=== PATIENT | female | born 1990 | race Caucasian/White ===

== ENCOUNTER 2021-07-21 11:50 | Emergency (ER) | payer BC ==
[2021-07-21 12:14] VITALS: PULSE 101; RESP 19; TEMP 98
[2021-07-21] MEDS ORDERED: SODIUM CHLORIDE 0.9% 50 ML IVPB ONE (15:30)
[2021-07-21] MEDS ORDERED: BAMLANIVIMAB (EUA) 700 MG, ETESEVIMAB (EUA) 1,400 MG in SODIUM CHLORIDE 0.9% 50 ML IVPB ONE (15:30)
--- NOTE | 2021-07-21 16:17 | ED ---
URI HPI - General Chief Complaint: Upper Respiratory Infection Stated Complaint: covid+, wants infusion/18 wks preg Time Seen by Provider: 07/21/21 14:13 Source: patient, RN notes reviewed Mode of arrival: ambulatory Limitations: no limitations - History of Present Illness Initial Comments: Patient is a 31-year-old female, currently 18 weeks , presenting to the emergency department requesting covid Antibody treatment. Patient states she started having symptoms yesterday of cough, some mild chest discomfort, she was evaluated at [facility] yesterday with extensive blood work and CT scans, all were normal. They did a rapid Covid which was positive. She consulted with her FREE LANCE MODEL, Dr. Peraza who recommended coming into the ER for antiviral infusion. Patient states her symptoms are fairly mild at this point, she has some mild cough and congestion, some mild fatigue but no other complaints. She denies any abdominal pain, no vaginal bleeding, no fevers or chills. She denies any nausea or vomiting, no diarrhea. She's been having a normal appetite. She has no further complaints at this time. Upon arrival to the ER, her vitals are stable. - Related Data Allergies Allergy/AdvReac Type Severity Reaction Status Date / Time No Known Allergies Allergy Verified 07/21/21 12:15 Review of Systems ROS Statement: Those systems with pertinent positive or pertinent negative responses have been documented in the HPI. ROS Other: All systems not noted in ROS Statement are negative. Past Medical History Past Medical History: No Reported History History of Any Multi-Drug Resistant Organisms: None Reported Past Surgical History: No Surgical Hx Reported Smoking Status: Never smoker Past Alcohol Use History: None Reported Past Drug Use History: None Reported General Exam - General Exam Comments Initial Comments: GENERAL: Patient is well-developed and well-nourished. Patient is nontoxic and in no acute distress. HEAD: Atraumatic, normocephalic. EYES: Pupils equal round and reactive to light, extraocular movements intact, sclera anicteric, conjunctiva are normal. Eyelids were unremarkable. ENT: Moist mucous membranes. NECK: Normal range of motion, supple without lymphadenopathy or JVD. LUNGS: Unlabored respirations. Breath sounds clear to auscultation bilaterally and equal. No wheezes rales or rhonchi. HEART: Regular rate and rhythm without murmurs, rubs or gallops. ABDOMEN: Soft, nontender, normoactive bowel sounds. No guarding, no rebound. No masses appreciated. MUSCULOSKELETAL: Normal extremities with adequate strength and normal range of motion, no pitting or edema. No clubbing or cyanosis. NEUROLOGICAL: Patient is alert and oriented x 3. SKIN: Warm, Dry, normal turgor, no rashes or lesions noted. Limitations: no limitations Course Vital Signs 07/21/21 12:11 Temperature 98.0 F Pulse Rate 101 H Respiratory 19 Rate O2 Sat by Pulse 97 Oximetry Medical Decision Making - Medical Decision Making Patient is a 31-year-old female, currently 18 weeks , presenting for colitic monoclonal antibody infusion. She tested positive yesterday, her symptoms also began yesterday. Her vitals are stable, her exam is unremarkable. She is having no alarming symptoms, no abdominal pain or vaginal bleeding. , FREE LANCE MODEL is Dr. Peraza who recommended the monoclonal antibodies. Patient received these without any adverse side effects. She is stable for discharge, she can follow up with her FREE LANCE MODEL. She is agreeable to this plan of care. Disposition Clinical Impression: COVID-19 Disposition: HOME SELF-CARE Condition: Stable Instructions (If sedation given, give patient instructions): Coronavirus Disease 2019 (COVID-19) Additional Instructions: Please return to the Emergency Department if symptoms worsen or any other concerns. Take Tylenol for any fevers or body aches. Continue to increase your fluids. Follow up with your FREE LANCE MODEL. Is patient prescribed a controlled substance at d/c from ED?: No Referrals: Jarek Cooley DO [Primary Care Provider] - 1-2 days Ingrid Peraza MD [STAFF PHYSICIAN] - 1-2 days Time of Disposition: 16:16
== END 2021-07-21 17:15 | disposition home or self-care (01) ==
LOC: EC 11:50
DX: O98.512 Other viral diseases complicating pregnancy, second trimester (principal); U07.1 COVID-19; Z3A.18 18 weeks gestation of pregnancy
CPT/HCPCS: 99284; 96365; J3490

== ENCOUNTER 2021-08-17 15:03 | Outpatient (CLI) | payer BC ==
[2021-08-17 15:56] VITALS: BP 118/75; PULSE 93; RESP 18; TEMP 97.2
--- NOTE | 2021-09-19 08:55 | P.MSEPDOC ---
Presenting Problems - Arrival Data Date of Arrival on Unit: 08/17/21 Time of Arrival on Unit: 15:13 Mode of Transport: Ambulatory - Complaint OB-Reason for Admission/Chief Complaint: PIH Comment: BP at work 150/80, 160/90 Medical History - Information : 1 Para: 0 Term: 0 : 0 Abortions: Spontaneous or Elective: 0 Number of Living Children: 0 - Gestational Age Gestational Age by JOCELYN (wks/days): 21 Weeks and 5 Days - History Comment: Denies complications Review of Systems - Review of Systems Constitutional: No problems Breast: No problems ENT: No problems Cardiovascular: No problems Respiratory: No problems Gastrointestinal: No problems Genitourinary: No problems Musculoskeletal: No problems Neurological: No problems Skin: No problems Vital Signs - Temperature Temperature: 97.2 F Temperature Source: Temporal Artery Scan - Pulse Right Sitting Brachial Pulse Rate: 93 Pulse Assessment Method: Automatic Cuff - Respirations Respiratory Rate: 18 Oxygen Delivery Method: Room Air - Blood Pressure Right Arm Sitting Blood Pressure: 118/75 Blood Pressure Mean: 89 Blood Pressure Source: Automatic Cuff Medical Screen Scoring - Assessment - Baby A Baseline FHR: 140 Heart Rate - NICHD Category: Category I (Normal) Physician Notification - Physician Notified Physician Notified Date: 08/17/21 Physician Notified Time: 15:45 Physician: Keysha Merchant Order Received: Yes - Notification Comment Comment: OK to dc home.Follow up with Dr Peraza in the office as scheduled. Maternal Triage Index - Maternal Triage Index Presenting for scheduled procedure w/no complaint: No - Stat/Priority 1 Stat Priority 1: No - Urgent/Priority 2 Urgent Priority 2: No - Prompt/Priority 3 Prompt Priority 3: No - Non-Urgent/Priority 4 Non-Urgent Priority 4: Yes Criteria Met for Priority 4: Bp elevated at work. WNL in triage today.Denies any other complaints. Disposition - Disposition OB Disposition: Physician follow up in office, Discharge to home Discharge Date: 08/17/21 Discharge Time: 15:56 I agree with the RN Medical Screening Exam: Yes Case reviewed; plan agreed upon as documented in EMR&OBIX.: Yes Diagnosis: RELATED CONDITIONS, UNSPECIFIED, SECOND TRIMESTER
== END 2021-08-17 15:57 | disposition home or self-care (01) ==
LOC: FBPOP 15:03
PROVIDERS: ATTEND Obstetrics & Gynecology
DX: O13.2 Gestational [pregnancy-induced] hypertension without significant proteinuria, second trimester (principal); Z3A.21 21 weeks gestation of pregnancy
CPT/HCPCS: 99215

== ENCOUNTER 2021-11-17 17:56 | Outpatient (CLI) | payer BC ==
[2021-11-17] MEDS ORDERED: LACTATED RINGERS 1,000 ML IV SCH (18:30)
[2021-11-17 18:45] LABS: Appearance,Urine Clear (Clear); Bilirubin,Urine Negative (Negative); Blood,Urine Negative (Negative); Color,Urine Light Yellow; Glucose,Urine (UA) Negative (Negative); Ketones,Urine Negative (Negative); Leukocyte Esterase,Urine Negative (Negative); Nitrite,Urine Negative (Negative); PH, Urine 6.5 (5.0-8.0); Protein,Urine Negative (Negative); Specific Gravity,Urine 1.014 (1.001-1.035); Urobilinogen,Urine <2.0 mg/dL (<2.0)
[2021-11-17 19:21] VITALS: BP 127/66; PULSE 99; RESP 18; TEMP 96.5
--- NOTE | 2021-12-04 10:36 | P.MSEPDOC ---
Presenting Problems - Arrival Data Date of Arrival on Unit: 11/17/21 Time of Arrival on Unit: 17:56 Mode of Transport: Ambulatory - Complaint OB-Reason for Admission/Chief Complaint: Possible Onset of Labor Comment: cramping that started about an hour prior to admission Medical History - Information : 1 Para: 0 Term: 0 : 0 Abortions: Spontaneous or Elective: 0 Number of Living Children: 0 - Gestational Age Gestational Age by JOCELYN (wks/days): 34 Weeks and 6 Days Review of Systems - Review of Systems Constitutional: No problems Breast: No problems ENT: No problems Cardiovascular: No problems Respiratory: No problems Gastrointestinal: No problems Genitourinary: No problems Musculoskeletal: No problems Neurological: No problems Skin: No problems Vital Signs - Temperature Temperature: 96.5 F Temperature Source: Temporal Artery Scan - Pulse Right Pulse Oximetery Pulse Rate: 99 Pulse Assessment Method: Pulse Oximetry - Respirations Respiratory Rate: 18 Oxygen Delivery Method: Room Air O2 Sat by Pulse Oximetry: 97 - Blood Pressure Right Arm Blood Pressure: 127/66 Blood Pressure Mean: 86 Blood Pressure Source: Automatic Cuff Medical Screen Scoring - Cervical Exam Dilation (cm): 1 Effacement (%): 0 Station: -3 Membranes: Intact - Uterine Contractions Frequency From (mins): 3 Frequency To (mins): 6 Duration From (seconds): 40 Duration To (seconds): 50 Intensity: Mild Resting: Soft to palpation - Assessment - Baby A Baseline FHR: 135 Heart Rate - NICHD Category: Category I (Normal) NST: Reactive Physician Notification - Physician Notified Physician Notified Date: 11/17/21 Physician Notified Time: 18:23 Physician: Ingrid Peraza Order Received: Yes (order for IV hydration and UA) Maternal Triage Index - Maternal Triage Index Presenting for scheduled procedure w/no complaint: No - Stat/Priority 1 Stat Priority 1: No - Urgent/Priority 2 Urgent Priority 2: No - Prompt/Priority 3 Prompt Priority 3: Yes Criteria Met for Priority 3: complaints of contractions/early labor signs 34 6/7 weeks - Non-Urgent/Priority 4 Non-Urgent Priority 4: No - Scheduled/Requesting Priority 5 Scheduled/Requesting Priority 5: No Disposition - Disposition OB Disposition: Physician follow up in office, Discharge to home Discharge Date: 11/17/21 Discharge Time: 19:15 I agree with the RN Medical Screening Exam: Yes Case reviewed; plan agreed upon as documented in EMR&OBIX.: Yes Diagnosis: FALSE LABOR BEFORE 37 COMPLETED WEEKS OF GEST, THIRD TRI
== END 2021-11-17 19:15 | disposition home or self-care (01) ==
LOC: FBPOP 17:56
PROVIDERS: ATTEND Obstetrics & Gynecology
DX: O47.03 False labor before 37 completed weeks of gestation, third trimester (principal); Z3A.34 34 weeks gestation of pregnancy
CPT/HCPCS: 59025; 81003; 96360; 99213; 99214

== ENCOUNTER 2021-11-26 20:50 | Outpatient (CLI) | payer BC ==
[2021-11-26 23:02] VITALS: BP 130/69; PULSE 97; RESP 18; TEMP 96.6
--- NOTE | 2022-01-06 17:58 | P.MSEPDOC ---
Presenting Problems - Arrival Data Date of Arrival on Unit: 11/26/21 Time of Arrival on Unit: 20:50 Mode of Transport: Ambulatory - Complaint OB-Reason for Admission/Chief Complaint: Possible Onset of Labor Medical History - Information : 1 Para: 0 Term: 0 : 0 Abortions: Spontaneous or Elective: 0 Number of Living Children: 0 - Gestational Age Gestational Age by JOCELYN (wks/days): 36 Weeks and 1 Days Review of Systems - Review of Systems Constitutional: No problems Breast: No problems ENT: No problems Cardiovascular: No problems Respiratory: No problems Gastrointestinal: No problems Genitourinary: No problems Musculoskeletal: No problems Neurological: No problems Skin: No problems Vital Signs - Temperature Temperature: 96.6 F Temperature Source: Temporal Artery Scan - Pulse Right Pulse Rate: 97 Pulse Assessment Method: Pulse Oximetry - Respirations Respiratory Rate: 18 Oxygen Delivery Method: Room Air O2 Sat by Pulse Oximetry: 98 - Blood Pressure Right Arm Blood Pressure: 130/69 Blood Pressure Mean: 89 Blood Pressure Source: Automatic Cuff Medical Screen Scoring - Cervical Exam Dilation (cm): 1 Station: -3 Membranes: Intact - Uterine Contractions Frequency From (mins): 5 Frequency To (mins): 8 Duration From (seconds): 50 Duration To (seconds): 60 Intensity: Mild Resting: Soft to palpation - Assessment - Baby A Baseline FHR: 120 Heart Rate - NICHD Category: Category I (Normal) NST: Reactive Physician Notification - Physician Notified Physician Notified Date: 11/26/21 Physician Notified Time: 22:20 Physician: Nora Lobo New Order Received: Yes (D/C home) - Notification Comment Comment: Dr. Lobo notified of pt's arrival to triage with c/o UC's q5-8min apart. POC discussed at this time. Pt okay to D/C home. Maternal Triage Index - Maternal Triage Index Presenting for scheduled procedure w/no complaint: No - Stat/Priority 1 Stat Priority 1: No - Urgent/Priority 2 Urgent Priority 2: No - Prompt/Priority 3 Prompt Priority 3: No - Non-Urgent/Priority 4 Non-Urgent Priority 4: Yes Criteria Met for Priority 4: JOCELYN 12/23/21 here at 36.1 weeks of gestations with c/o UC's q5-8min since 1730, rated 4/10 on a 0/10 pain scale. Disposition - Disposition OB Disposition: Discharge to home Discharge Date: 11/26/21 Discharge Time: 22:39 I agree with the RN Medical Screening Exam: Yes Case reviewed; plan agreed upon as documented in EMR&OBIX.: Yes Diagnosis: FALSE LABOR BEFORE 37 COMPLETED WEEKS OF GEST, THIRD TRI
== END 2021-11-26 22:39 | disposition home or self-care (01) ==
LOC: FBPOP 20:50
PROVIDERS: ATTEND Obstetrics & Gynecology Obstetrics
DX: O47.03 False labor before 37 completed weeks of gestation, third trimester (principal); Z3A.36 36 weeks gestation of pregnancy
CPT/HCPCS: 59025; 99213

== ENCOUNTER 2021-12-10 22:51 | Outpatient (CLI) | payer BC ==
[2021-12-11 00:07] VITALS: BP 134/74; PULSE 90; RESP 16; TEMP 96.4
--- NOTE | 2022-01-08 08:54 | P.MSEPDOC ---
Presenting Problems - Arrival Data Date of Arrival on Unit: 12/11/21 Time of Arrival on Unit: 22:51 Mode of Transport: Ambulatory - Complaint OB-Reason for Admission/Chief Complaint: Possible Onset of Labor Comment: contractions since 1899 Medical History - Information : 1 Para: 0 Term: 0 : 0 Abortions: Spontaneous or Elective: 0 Number of Living Children: 0 - Gestational Age Gestational Age by JOCELYN (wks/days): 38 Weeks and 2 Days Review of Systems - Review of Systems Constitutional: No problems Breast: No problems ENT: No problems Cardiovascular: No problems Respiratory: No problems Gastrointestinal: Diarrhea Genitourinary: No problems Musculoskeletal: No problems Neurological: No problems Skin: No problems Vital Signs - Temperature Temperature: 96.4 F Temperature Source: Temporal Artery Scan - Pulse Right Sitting Pulse Rate: 90 Pulse Assessment Method: Automatic Cuff - Respirations Respiratory Rate: 16 Oxygen Delivery Method: Room Air O2 Sat by Pulse Oximetry: 97 - Blood Pressure Right Arm Sitting Blood Pressure: 134/74 Blood Pressure Mean: 94 Blood Pressure Source: Automatic Cuff Medical Screen Scoring - Cervical Exam Dilation (cm): 1.5 Effacement (%): 60 Station: -3 Membranes: Intact - Assessment - Baby A Baseline FHR: 125 Heart Rate - NICHD Category: Category I (Normal) Physician Notification - Physician Notified Physician Notified Date: 12/11/21 Physician Notified Time: 23:25 Physician: Ingrid Peraza Order Received: Yes - Notification Comment Comment: Pt may be discharged home with reactive NST. Pt is to keep sced apt for Tuesday at 845. Pt is to increase fluids and eat a bland diet. Maternal Triage Index - Maternal Triage Index Presenting for scheduled procedure w/no complaint: No - Stat/Priority 1 Stat Priority 1: No - Urgent/Priority 2 Urgent Priority 2: No - Prompt/Priority 3 Prompt Priority 3: No - Non-Urgent/Priority 4 Non-Urgent Priority 4: Yes Criteria Met for Priority 4: irregular contractions, diarrhea and nausea for past few days Disposition - Disposition OB Disposition: Physician follow up in office, Discharge to home, Written follow up instructions reviewed Discharge Date: 12/11/21 Discharge Time: 00:00 I agree with the RN Medical Screening Exam: Yes Case reviewed; plan agreed upon as documented in EMR&OBIX.: Yes Comments: Patient was neither seen nor examined by me Diagnosis: FALSE LABOR AT OR AFTER 37 COMPLETED WEEKS OF GESTATION
== END 2021-12-11 | disposition home or self-care (01) ==
LOC: FBPOP 22:51
PROVIDERS: ATTEND Obstetrics & Gynecology
DX: O47.1 False labor at or after 37 completed weeks of gestation (principal); Z3A.38 38 weeks gestation of pregnancy
CPT/HCPCS: 59025; 99213

== ENCOUNTER → 2023-10-31 | Outpatient (CLI) | payer BC ==
[2023-10-31 15:45] LABS: C Reactive Protein 0.4 mg/dL (0.00-0.80)
== END | disposition home or self-care (01) ==
LOC: LABWHC1 10:05
PROVIDERS: ATTEND Psychiatry & Neurology Neurology
DX: M79.10 Myalgia, unspecified site (principal); M35.7 Hypermobility syndrome; M25.50 Pain in unspecified joint; R53.1 Weakness
CPT/HCPCS: 36415; 82306; 82550; 82607; 84207; 85652; 86140; 86235

== ENCOUNTER 2024-02-22 08:57 | Emergency (ER) | payer BC ==
[2024-02-22 09:03] VITALS: RESP 18
[2024-02-22 09:37] LABS: Basophils # (A) 0.1 k/uL (0-0.2); Basophils % (A) 1 %; Eosinophils # (A) 0.4 k/uL (0-0.7); Eosinophils % (A) 4 %; HCT 43.9 % (34.0-46.0); HGB 13.7 gm/dL (11.4-16.0); Lymphocytes # (A) 1.4 k/uL (1.0-4.8); Lymphocytes % (A) 14 %; MCHC 31.3 g/dL (31.0-37.0); MCV 92.8 fL (80.0-100.0); Mean Platelet Volume 7.9; Monocytes # (A) 0.5 k/uL (0-1.0); Monocytes % (A) 5 %; Neutrophils # (A) 7.5 k/uL (1.3-7.7); Neutrophils % (A) 75 %; Platelet Count 336 k/uL (150-450); RBC 4.73 m/uL (3.80-5.40); RDW 12.2 % (11.5-15.5); WBC 9.9 k/uL (3.8-10.6)
[2024-02-22 09:54] LABS: ALT 22 U/L (4-34); AST 26 U/L (14-36); African American GFR (CKD) >90 (>60 ml/min/1.73 sqM); Albumin 4.4 g/dL (3.5-5.0); Alkaline Phosphatase 73 U/L (38-126); Anion Gap 6 mmol/L; Blood Urea Nitrogen 14 mg/dL (7-17); Carbon Dioxide 26 mmol/L (22-30); Chloride 108 mmol/L (98-107); Glucose 89 mg/dL (74-99); Non-African American GFR(CKD) >90 (>60 ml/min/1.73 sqM); Potassium 4.6 mmol/L (3.5-5.1); Sodium 140 mmol/L (137-145); Total Bilirubin 0.4 mg/dL (0.2-1.3); Total Protein 7.4 g/dL (6.3-8.2)
[2024-02-22 10:10] LABS: HCG,Quantitative Serum 84.3 mIU/mL
[2024-02-22 10:15] LABS: Appearance,Urine Cloudy (Clear); Bacteria,Urine Rare /hpf; Bilirubin,Urine Negative (Negative); Blood,Urine Large (Negative); Color,Urine Yellow; Glucose,Urine (UA) Negative (Negative); Ketones,Urine Negative (Negative); Leukocyte Esterase,Urine Moderate (Negative); Nitrite,Urine Negative (Negative); PH, Urine 7.5 (5.0-8.0); Protein,Urine Trace (Negative); RBC,Urine >182 /hpf (0-5); Specific Gravity,Urine 1.009 (1.001-1.035); Squamous Epithelial Cell,Urine 3 /hpf (0-4); Urobilinogen,Urine <2.0 mg/dL (<2.0); WBC,Urine 27 /hpf (0-5)
--- NOTE | 2024-02-22 10:16 | ED ---
Female Urogenital HPI - General Chief complaint: Vaginal Bleeding Stated complaint: poss miscarriage Time Seen by Provider: 02/22/24 10:14 Source: patient, RN notes reviewed Mode of arrival: ambulatory Limitations: no limitations - History of Present Illness Initial comments: This is a 33-year-old female approximately 6 weeks gestation presenting to the ER with a chief complaint of vaginal bleeding. She states bleeding started yesterday morning and has been persistent. Patient also was endorsing lower abdominal cramping/pressure. She was seen by OB yesterday to have lab work obtained her serum hCG was 201 at that time. Patient is following up with Dr. Mcclain. She states vaginal bleeding has been persistent and has increased in intensity throughout the night which brought her to the ER. She denies any blood thinner use, fevers, chills, nausea, vomiting, chest pain, shortness of breath, constipation/diarrhea, urinary complaints or peripheral edema. - Related Data Home Medications Medication Instructions Recorded Confirmed Aspirin 81 mg PO DAILY 08/17/21 12/16/21 Calcium Carbonate [Calcium] 600 mg PO DAILY 08/17/21 12/16/21 Famotidine [Pepcid] 20 mg PO DAILY 08/17/21 12/16/21 Pnv No.95/Ferrous Fum/Folic AC 1 tablet PO DAILY 08/17/21 12/16/21 [ Multivitamin Tablet] Sertraline [Zoloft] 50 mg PO DAILY 08/17/21 12/16/21 Allergies Allergy/AdvReac Type Severity Reaction Status Date / Time No Known Allergies Allergy Verified 02/22/24 09:03 Review of Systems ROS Statement: Those systems with pertinent positive or pertinent negative responses have been documented in the HPI. ROS Other: All systems not noted in ROS Statement are negative. Past Medical History Past Medical History: Asthma History of Any Multi-Drug Resistant Organisms: None Reported Past Surgical History: Adenoidectomy, Tonsillectomy Past Anesthesia/Blood Transfusion Reactions: Unable to Obtain Past Psychological History: No Psychological Hx Reported Smoking Status: Never smoker Past Alcohol Use History: None Reported Past Drug Use History: None Reported - Past Family History Mother Family Medical History: Hypertension General Exam Limitations: no limitations General appearance: alert, in no apparent distress Respiratory exam: Present: normal lung sounds bilaterally. Absent: respiratory distress, wheezes, rales, rhonchi, stridor Cardiovascular Exam: Present: regular rate, normal rhythm, normal heart sounds. Absent: systolic murmur, diastolic murmur, rubs, gallop, clicks GI/Abdominal exam: Present: soft, normal bowel sounds. Absent: distended, tenderness, guarding, rebound, rigid Neurological exam: Present: alert, oriented X3, CN II-XII intact Skin exam: Present: warm, dry, intact, normal color. Absent: rash Course Vital Signs 02/22/24 02/22/24 09:01 10:54 Temperature 98.5 F 98.1 F Pulse Rate 59 L 86 Respiratory 18 18 Rate Blood Pressure 121/78 122/80 O2 Sat by Pulse 98 99 Oximetry Medical Decision Making - Medical Decision Making Was pt. sent in by a medical professional or institution (TOYA Salas, PSYCH SOCIAL WORKER, urgent care, hospital, or shelter...) When possible be specific @ -No Did you speak to anyone other than the patient for history (EMS, parent, family, police, friend...)? What history was obtained from this source @ -No Did you review nursing and triage notes (agree or disagree)? Why? @ -I reviewed and agree with nursing and triage notes Were old charts reviewed (outside hosp., previous admission, EMS record, old EKG, old radiological studies, urgent care reports/EKG's, shelter records)? Report findings @ -Yes I reviewed blood type from previous delivery on 12-16-2021. Patient blood type O+. Differential Diagnosis (chest pain, altered mental status, abdominal pain women, abdominal pain men, vaginal bleeding, weakness, fever, dyspnea, syncope, headache, dizziness, GI bleed, back pain, seizure, CVA, palpatations, mental health, musculoskeletal)? @ -Differential Vaginal Bleeding: Spontaneous , threatened , molar , ectopic , bloody show, incompetent cervix, abruptioplacenta, placenta previa, uterine rupture, dysfunctional uterine bleeding, hemorrhage, uterine fibroids, this is not meant to be an all-inclusive list. EKG interpreted by me (3pts min.). @ -None X-rays interpreted by me (1pt min.). @ -None done CT interpreted by me (1pt min.). @ -None done U/S interpreted by me (1pt. min.). @ -Obstetrical ultrasound negative for IUP. What testing was considered but not performed or refused? (CT, X-rays, U/S, labs)? Why? @ -None What meds were considered but not given or refused? Why? @ -None Did you discuss the management of the patient with other professionals (professionals i.e. , PA, PSYCH SOCIAL WORKER, lab, RT, psych nurse, social media marketing manager, engineering faculty, teacher, juvenile correctional officer, manager of case management)? Give summary @ -No Was smoking cessation discussed for >3mins.? @ -No Was critical care preformed (if so, how long)? @ -No Were there social determinants of health that impacted care today? How? (Homelessness, low income, unemployed, alcoholism, drug addiction, transportation, low edu. Level, literacy, decrease access to med. care, detention, rehab)? @ -No Was there de-escalation of care discussed even if they declined (Discuss DNR or withdrawal of care, Hospice)? DNR status @ -No What co-morbidities impacted this encounter? (DM, HTN, Smoking, COPD, CAD, Cancer, CVA, ARF, Chemo, Hep., AIDS, mental health diagnosis, sleep apnea, morbid obesity)? @ - Was patient admitted / discharged? Hospital course, mention meds given and route, prescriptions, significant lab abnormalities, going to OR and other per tinent info. @ -Discharge. 33-year-old female presented to the ER with a chief complaint of vaginal bleeding. Patient is G2, P1 approximately 6 weeks gestation. History and physical exam completed. Vitals significant for a temperature of 98.5F, rate 59, respiratory rate 18, blood pressure 121/78, oxygen saturation 98% on room air. Exam significant for mild suprapubic tenderness to palpation. Laboratory studies and ultrasound will be obtained. Patient in agreements with this plan. Laboratory studies significant for a stable hemoglobin at 13.7, serum hCG 84.3. Urine analysis hemorrhagic with large blood and moderate leukocyte esterases this is likely contaminated from vaginal bleeding. There were 27 white blood cells concerning of infection. Urine culture sent. Patient will not be started on antibiotics at this time as she is asymptomatic. Ultrasound negative for IUP. Given patient's laboratory studies and ultrasound findings spontaneous considered. Upon reevaluation, patient resting comfortably in exam room in no signs of acute distress. Results discussed with patient, all questions answered. Advised close follow-up with PHP WEB DEVELOPER, Dr. Mcclain, and serial HCGs, serum quantitative hCG prescription given. I instructed her to have it drawn in 48 hours. Patient's blood type O+, no indication for Rhogam. Strict return parameters discussed. Patient discharged in stable condition. Patient and , at bedside, verbally expressed understanding and agreement with care plan. Case discussed with Ed attending, Dr. Lim. Undiagnosed new problem with uncertain prognosis? @ -No Drug Therapy requiring intensive monitoring for toxicity (Heparin, Nitro, Insu terence, Cardizem)? @ -No Were any procedures done? @ -No Diagnosis/symptom? @ -Spontaneous Acute, or Chronic, or Acute on Chronic? @ -Acute Uncomplicated (without systemic symptoms) or Complicated (systemic symptoms)? @ -Complicated Side effects of treatment? @ -No Exacerbation, Progression, or Severe Exacerbation? @ -No Poses a threat to life or bodily function? How? (Chest pain, USA, SC, pneumonia, PE, COPD, DKA, ARF, appy, cholecystitis, CVA, Diverticulitis, Homicidal, Suicidal, threat to staff... and all critical care pts) @ -Low likelihood - Lab Data Result diagrams: 02/22/24 09:31 02/22/24 09:31 Lab Results 02/22/24 02/22/24 02/22/24 Range/Units 09:31 09:31 09:41 WBC 9.9 (3.8-10.6) k/uL RBC 4.73 (3.80-5.40) m/uL Hgb 13.7 (11.4-16.0) gm/dL Hct 43.9 (34.0-46.0) % MCV 92.8 (80.0-100.0) fL MCH 29.0 (25.0-35.0) pg MCHC 31.3 (31.0-37.0) g/dL RDW 12.2 (11.5-15.5) % Plt Count 336 (150-450) k/uL MPV 7.9 Neutrophils % 75 % Lymphocytes % 14 % Monocytes % 5 % Eosinophils % 4 % Basophils % 1 % Neutrophils # 7.5 (1.3-7.7) k/uL Lymphocytes # 1.4 (1.0-4.8) k/uL Monocytes # 0.5 (0-1.0) k/uL Eosinophils # 0.4 (0-0.7) k/uL Basophils # 0.1 (0-0.2) k/uL Sodium 140 (137-145) mmol/L Potassium 4.6 (3.5-5.1) mmol/L Chloride 108 H (98-107) mmol/L Carbon Dioxide 26 (22-30) mmol/L Anion Gap 6 mmol/L BUN 14 (7-17) mg/dL Creatinine 0.60 (0.52-1.04) mg/dL Est GFR (CKD-EPI)AfAm >90 (>60 ml/min/1.73 sqM) Est GFR (CKD-EPI)NonAf >90 (>60 ml/min/1.73 sqM) Glucose 89 (74-99) mg/dL Calcium 9.0 (8.4-10.2) mg/dL Total Bilirubin 0.4 (0.2-1.3) mg/dL AST 26 (14-36) U/L ALT 22 (4-34) U/L Alkaline Phosphatase 73 (38-126) U/L Total Protein 7.4 (6.3-8.2) g/dL Albumin 4.4 (3.5-5.0) g/dL HCG, Quant 84.3 mIU/mL Urine Color Yellow Urine Appearance Cloudy H (Clear) Urine pH 7.5 (5.0-8.0) Ur Specific Blair 1.009 (1.001-1.035) Urine Protein Trace H (Negative) Urine Glucose (UA) Negative (Negative) Urine Ketones Negative (Negative) Urine Blood Large H (Negative) Urine Nitrite Negative (Negative) Urine Bilirubin Negative (Negative) Urine Urobilinogen <2.0 (<2.0) mg/dL Ur Leukocyte Esterase Moderate H (Negative) Urine RBC >182 H (0-5) /hpf Urine WBC 27 H (0-5) /hpf Ur Squamous Epith Cells 3 (0-4) /hpf Urine Bacteria Rare H (None) /hpf - Radiology Data Radiology results: report reviewed, image reviewed Disposition Clinical Impression: Spontaneous Disposition: HOME SELF-CARE Condition: Stable Instructions (If sedation given, give patient instructions): Miscarriage (ED) Additional Instructions: Please follow-up with Dr. Mcclain in the next 1-2 days. Have blood HCG drawn in 48 hours. Return to the ER for any new or worsening symptoms. Is patient prescribed a controlled substance at d/c from ED?: No Referrals: Carly Montano MD [Primary Care Provider] - 1-2 days Lily Mcclain MD [STAFF PHYSICIAN] - 1-2 days Time of Disposition: 10:44
--- NOTE | 2024-02-22 10:31 | US ---
EXAMINATION TYPE: Transabdominal DATE OF EXAM: 02/22/2024 10:07 AM COMPARISON: NONE CLINICAL INDICATION: Female, 33 years old with history of vag bleeding 6 wks gestation; Cramping and spotting started yesterday EXAM PERFORMED: Transvaginal (TV) and Transabdominal (TA) EXAM MEASUREMENTS: GESTATIONAL AGE / DATING Physician Established: (6 weeks/3 days) EDC: 10/14/2024 Dates by LMP: (6 weeks/3 days) EDC: 10/14/2024 Dates by First Scan: No previous this is first scan ( weeks/ days) EDC: Dates by Current Scan for: No IUP seen at this time ( weeks/ days) EDC: MATERNAL ANATOMY Uterus: 9.5 x 4.6 x 5.3 Right Ovary: 1.9 x 1.7 x 2.3 Left Ovary: 2.4 x 1.7 x 2.6 Post CDS / Adnexa: Trace fluid within the CDS Presence of free fluid: Yes Presence of corpus luteal cyst: No Presence of subchorionic bleed: No GESTATION / SURVEY CRL: Not seen ( weeks/ days) MSD: Not seen ( weeks/ days) Yolk Sac (normal less than 6mm): Not seen Heart Rate: Not seen bpm Rhythm: NA IUP: No IUP seen at this time Nuchal Translucency 10-14wks (normal less than 3mm): NA Age Appropriate Anatomy Cord Insertion: NA Limbs: NA Calvarium: NA Date of LMP: 01/08/2024 Beta HcG (if available): Not available at this time IMPRESSION: 1. No intrauterine identified. If the patient has a positive beta hCG. Then differential di agnosis would include normal too early to detect, back space and missed . Ectopic p regnancy not entirely excluded correlate with serial beta hCG and pelvic ultrasound as clinically war ranted.
[2024-02-22 10:55] VITALS: BP 122/80; PULSE 86; TEMP 98.1
== END 2024-02-22 10:54 | disposition home or self-care (01) ==
LOC: EC 08:57
DX: O03.9 Complete or unspecified spontaneous abortion without complication (principal)
CPT/HCPCS: 36415; 76801; 76817; 80053; 81001; 84702; 85025; 87086; 99284

== ENCOUNTER 2024-05-19 13:03 | Emergency (ER) | payer BC ==
[2024-05-19 13:09] VITALS: PULSE 61; TEMP 98
--- NOTE | 2024-05-19 13:39 | ED ---
Female Urogenital HPI - General Chief complaint: Vaginal Bleeding Stated complaint: 7wks preg, vaginal bleeding Time Seen by Provider: 05/19/24 13:37 Source: patient, RN notes reviewed Mode of arrival: ambulatory Limitations: no limitations - History of Present Illness Initial comments: 33-year-old G3, P1 female at approximately 7 weeks gestation presenting to the ER with chief complaint of vaginal bleeding x 1 hour. States she had a routine OB visit earlier this week in which the ultrasound revealed intrauterine with a heartbeat. Patient denies abdominal pain or cramping. Denies urinary symptoms. She was seen in the ER 3 months ago for spontaneous miscarriage. - Related Data Home Medications Medication Instructions Recorded Confirmed Aspirin 81 mg PO DAILY 08/17/21 12/16/21 Calcium Carbonate [Calcium] 600 mg PO DAILY 08/17/21 12/16/21 Famotidine [Pepcid] 20 mg PO DAILY 08/17/21 12/16/21 Pnv No.95/Ferrous Fum/Folic AC 1 tablet PO DAILY 08/17/21 12/16/21 [ Multivitamin Tablet] Sertraline [Zoloft] 50 mg PO DAILY 08/17/21 12/16/21 Previous Rx's Medication Instructions Recorded Cephalexin [Keflex] 500 mg PO Q8HR 7 Days #21 cap 05/19/24 Allergies Allergy/AdvReac Type Severity Reaction Status Date / Time No Known Allergies Allergy Verified 05/19/24 13:08 Review of Systems ROS Statement: Those systems with pertinent positive or pertinent negative responses have been documented in the HPI. ROS Other: All systems not noted in ROS Statement are negative. Past Medical History Past Medical History: Asthma History of Any Multi-Drug Resistant Organisms: None Reported Past Surgical History: Adenoidectomy, Tonsillectomy Past Anesthesia/Blood Transfusion Reactions: Unable to Obtain Past Psychological History: No Psychological Hx Reported Smoking Status: Never smoker Past Alcohol Use History: None Reported Past Drug Use History: None Reported - Past Family History Mother Family Medical History: Hypertension General Exam Limitations: no limitations General appearance: alert, in no apparent distress Head exam: Present: atraumatic, normocephalic, normal inspection Eye exam: Present: normal appearance, PERRL, EOMI. Absent: scleral icterus, conjunctival injection, periorbital swelling Respiratory exam: Present: normal lung sounds bilaterally. Absent: respiratory distress, wheezes, rales, rhonchi, stridor Cardiovascular Exam: Present: regular rate, normal rhythm, normal heart sounds. Absent: systolic murmur, diastolic murmur, rubs, gallop, clicks GI/Abdominal exam: Present: soft, normal bowel sounds. Absent: distended, tenderness, guarding, rebound, rigid Back exam: Absent: CVA tenderness (R), CVA tenderness (L) Neurological exam: Present: alert, oriented X3 Psychiatric exam: Present: normal affect, normal mood Skin exam: Present: warm, dry, intact, normal color. Absent: rash Course Vital Signs 05/19/24 13:07 Temperature 98 F Pulse Rate 61 Respiratory 20 Rate Blood Pressure 119/81 O2 Sat by Pulse 99 Oximetry Medical Decision Making - Medical Decision Making Was pt. sent in by a medical professional or institution (, PA, [employer], urgent care, hospital, or fpc...) When possible be specific @ -[No] Did you speak to anyone other than the patient for history (EMS, parent, family, police, friend...)? What history was obtained from this source @ -[No] Did you review nursing and triage notes (agree or disagree)? Why? @ -[I reviewed and agree with nursing and triage notes] Were old charts reviewed (outside hosp., previous admission, EMS record, old EKG, old radiological studies, urgent care reports/EKG's, fpc records)? Report findings @ -Previous ER visit including lab work and blood type reviewed Differential Diagnosis (chest pain, altered mental status, abdominal pain women, abdominal pain men, vaginal bleeding, weakness, fever, dyspnea, syncope, headache, dizziness, GI bleed, back pain, seizure, CVA, palpatations, mental health, musculoskeletal)? @ -Differential Vaginal Bleeding: Spontaneous , threatened , molar , ectopic , bloody show, incompetent cervix, abruptioplacenta, placenta previa, uterine rupture, dysfunctional uterine bleeding, hemorrhage, uterine fibroids, this is not meant to be an all-inclusive list. EKG interpreted by me (3pts min.). @ -None X-rays interpreted by me (1pt min.). @ -[None done] CT interpreted by me (1pt min.). @ -[None done] U/S interpreted by me (1pt. min.). @ -Pelvic ultrasound revealed single viable intrauterine , 2.1 x 1.1 x 0.2 cm subchorionic bleed, no adnexal abnormalities, no free fluid in cul-de-sac What testing was considered but not performed or refused? (CT, X-rays, U/S, labs)? Why? @ -[None] What meds were considered but not given or refused? Why? @ -RhoGAM not indicated due to patient is O+ via blood type and screen 3 months ago. Did you discuss the management of the patient with other professionals (professionals i.e. , PA, [employer], lab, RT, psych nurse, criminal justice social worker, department specialist, t eacher, facility security officer, oil field caser)? Give summary @ -[No] Was smoking cessation discussed for >3mins.? @ -[No] Was critical care preformed (if so, how long)? @ -[No] Were there social determinants of health that impacted care today? How? (Homelessness, low income, unemployed, alcoholism, drug addiction, transportation, low edu. Level, literacy, decrease access to med. care, intermediate, rehab)? @ -[No] Was there de-escalation of care discussed even if they declined (Discuss DNR or withdrawal of care, Hospice)? DNR status @ -[No] What co-morbidities impacted this encounter? (DM, HTN, Smoking, COPD, CAD, Cancer, CVA, ARF, Chemo, Hep., AIDS, mental health diagnosis, sleep apnea, morbid obesity)? @ -[None] Was patient admitted / discharged? Hospital course, mention meds given and route, prescriptions, significant lab abnormalities, going to OR and other pertinent info. @ -Patient was discharged. This is a 33-year-old female at approximately 7 weeks gestation presenting for vaginal bleeding x 1 day. Vitals within normal limits. No abdominal tenderness to palpation. Laboratory studies including CBC, CMP, lactic acid unremarkable. Hemoglobin is stable at 13.2. Beta hCG 26,764. Urine is remarkable for few bacteria. Ultrasound reveals single viable intrauterine with a subchorionic bleed. Findings discussed with patient. Vaginal bleeding is likely due to subchorionic bleed at this time. I advised patient to follow-up with OB in 2 days for repeat beta hCG levels. I will prescribe Keflex for asymptomatic bacteriuria. Return precautions discussed and patient is agreeable to plan. Case was discussed with my ED attending Dr. Caraballo. Patient discharged stable condition. Undiagnosed new problem with uncertain prognosis? @ -[No] Drug Therapy requiring intensive monitoring for toxicity (Heparin, Nitro, Insulin, Cardizem)? @ -[No] Were any procedures done? @ -[No] Diagnosis/symptom? @ -Subchorionic bleed, asymptomatic bacteriuria Acute, or Chronic, or Acute on Chronic? @ -Acute Uncomplicated (without systemic symptoms) or Complicated (systemic symptoms)? @ -Uncomplicated Side effects of treatment? @ -[No] Exacerbation, Progression, or Severe Exacerbation? @ -[No] Poses a threat to life or bodily function? How? (Chest pain, [place], [place], pneumonia, PE, COPD, DKA, ARF, appy, cholecystitis, CVA, Diverticulitis, Homicidal, Suicidal, threat to staff... and all critical care pts) @ -Not at this time - Lab Data Result diagrams: 05/19/24 14:08 05/19/24 14:08 Lab Results 05/19/24 05/19/24 05/19/24 Range/Units 13:37 14:08 14:08 WBC 8.9 (3.8-10.6) k/uL RBC 4.43 (3.80-5.40) m/uL Hgb 13.2 (11.4-16.0) gm/dL Hct 39.9 (34.0-46.0) % MCV 90.2 (80.0-100.0) fL MCH 29.9 (25.0-35.0) pg MCHC 33.2 (31.0-37.0) g/dL RDW 12.8 (11.5-15.5) % Plt Count 277 (150-450) k/uL MPV 7.7 Neutrophils % 71 % Lymphocytes % 17 % Monocytes % 5 % Eosinophils % 5 % Basophils % 0 % Neutrophils # 6.3 (1.3-7.7) k/uL Lymphocytes # 1.5 (1.0-4.8) k/uL Monocytes # 0.4 (0-1.0) k/uL Eosinophils # 0.5 (0-0.7) k/uL Basophils # 0.0 (0-0.2) k/uL Sodium 135 L (137-145) mmol/L Potassium 4.3 (3.5-5.1) mmol/L Chloride 105 (98-107) mmol/L Carbon Dioxide 21 L (22-30) mmol/L Anion Gap 9 mmol/L BUN 11 (7-17) mg/dL Creatinine 0.55 (0.52-1.04) mg/dL Est GFR (CKD-EPI)AfAm >90 (>60 ml/min/1.73 sqM) Est GFR (CKD-EPI)NonAf >90 (>60 ml/min/1.73 sqM) Glucose 86 (74-99) mg/dL Plasma Lactic Acid Cheo (0.7-2.0) mmol/L Calcium 9.3 (8.4-10.2) mg/dL Total Bilirubin 0.5 (0.2-1.3) mg/dL AST 26 (14-36) U/L ALT 18 (4-34) U/L Alkaline Phosphatase 65 (38-126) U/L Total Protein 7.1 (6.3-8.2) g/dL Albumin 4.4 (3.5-5.0) g/dL HCG, Quant 06047.5 mIU/mL Urine Color Light Yellow Urine Appearance Clear (Clear) Urine pH 6.0 (5.0-8.0) Ur Specific [place] 1.012 (1.001-1.035) Urine Protein Trace H (Negative) Urine Glucose (UA) Negative (Negative) Urine Ketones Negative (Negative) Urine Blood Large H (Negative) Urine Nitrite Negative (Negative) Urine Bilirubin Negative (Negative) Urine Urobilinogen <2.0 (<2.0) mg/dL Ur Leukocyte Esterase Negative (Negative) Urine RBC >182 H (0-5) /hpf Urine WBC <1 (0-5) /hpf Ur Squamous Epith Cells 1 (0-4) /hpf Urine Bacteria Few H (None) /hpf Urine Mucus Rare H (None) /hpf 05/19/24 Range/Units 14:08 WBC (3.8-10.6) k/uL RBC (3.80-5.40) m/uL Hgb (11.4-16.0) gm/dL Hct (34.0-46.0) % MCV (80.0-100.0) fL MCH (25.0-35.0) pg MCHC (31.0-37.0) g/dL RDW (11.5-15.5) % Plt Count (150-450) k/uL MPV Neutrophils % % Lymphocytes % % Monocytes % % Eosinophils % % Basophils % % Neutrophils # (1.3-7.7) k/uL Lymphocytes # (1.0-4.8) k/uL Monocytes # (0-1.0) k/uL Eosinophils # (0-0.7) k/uL Basophils # (0-0.2) k/uL Sodium (137-145) mmol/L Potassium (3.5-5.1) mmol/L Chloride (98-107) mmol/L Carbon Dioxide (22-30) mmol/L Anion Gap mmol/L BUN (7-17) mg/dL Creatinine (0.52-1.04) mg/dL Est GFR (CKD-EPI)AfAm (>60 ml/min/1.73 sqM) Est GFR (CKD-EPI)NonAf (>60 ml/min/1.73 sqM) Glucose (74-99) mg/dL Plasma Lactic Acid Cheo 0.7 (0.7-2.0) mmol/L Calcium (8.4-10.2) mg/dL Total Bilirubin (0.2-1.3) mg/dL AST (14-36) U/L ALT (4-34) U/L Alkaline Phosphatase (38-126) U/L Total Protein (6.3-8.2) g/dL Albumin (3.5-5.0) g/dL HCG, Quant mIU/mL Urine Color Urine Appearance (Clear) Urine pH (5.0-8.0) Ur Specific [place] (1.001-1.035) Urine Protein (Negative) Urine Glucose (UA) (Negative) Urine Ketones (Negative) Urine Blood (Negative) Urine Nitrite (Negative) Urine Bilirubin (Negative) Urine Urobilinogen (<2.0) mg/dL Ur Leukocyte Esterase (Negative) Urine RBC (0-5) /hpf Urine WBC (0-5) /hpf Ur Squamous Epith Cells (0-4) /hpf Urine Bacteria (None) /hpf Urine Mucus (None) /hpf Disposition Clinical Impression: Subchorionic bleed, Asymptomatic bacteriuria during Disposition: HOME SELF-CARE Condition: Stable Instructions (If sedation given, give patient instructions): Subchorionic Hemorrhage (ED) Additional Instructions: Please follow-up with OB as discussed in 2 days for repeat beta-hCG levels. Take Keflex as prescribed for asymptomatic bacteriuria. Please return to the Emergency Department if symptoms worsen or any other concerns. Prescriptions: Cephalexin [Keflex] 500 mg PO Q8HR 7 Days #21 cap Is patient prescribed a controlled substance at d/c from ED?: No Referrals: Carly Montano MD [Primary Care Provider] - 1-2 days Time of Disposition: 15:57
[2024-05-19 14:12] LABS: Basophils % (A) 0 %; Eosinophils # (A) 0.5 k/uL (0-0.7); Eosinophils % (A) 5 %; HCT 39.9 % (34.0-46.0); HGB 13.2 gm/dL (11.4-16.0); Lymphocytes # (A) 1.5 k/uL (1.0-4.8); Lymphocytes % (A) 17 %; MCH 29.9 pg (25.0-35.0); MCHC 33.2 g/dL (31.0-37.0); MCV 90.2 fL (80.0-100.0); Mean Platelet Volume 7.7; Monocytes # (A) 0.4 k/uL (0-1.0); Monocytes % (A) 5 %; Neutrophils # (A) 6.3 k/uL (1.3-7.7); Neutrophils % (A) 71 %; Platelet Count 277 k/uL (150-450); RBC 4.43 m/uL (3.80-5.40); RDW 12.8 % (11.5-15.5); WBC 8.9 k/uL (3.8-10.6)
[2024-05-19 14:26] LABS: ALT 18 U/L (4-34); AST 26 U/L (14-36); African American GFR (CKD) >90 (>60 ml/min/1.73 sqM); Albumin 4.4 g/dL (3.5-5.0); Alkaline Phosphatase 65 U/L (38-126); Anion Gap 9 mmol/L; Blood Urea Nitrogen 11 mg/dL (7-17); Calcium 9.3 mg/dL (8.4-10.2); Carbon Dioxide 21 mmol/L (22-30); Chloride 105 mmol/L (98-107); Glucose 86 mg/dL (74-99); Non-African American GFR(CKD) >90 (>60 ml/min/1.73 sqM); Potassium 4.3 mmol/L (3.5-5.1); Sodium 135 mmol/L (137-145); Total Bilirubin 0.5 mg/dL (0.2-1.3); Total Protein 7.1 g/dL (6.3-8.2)
[2024-05-19 14:41] LABS: Appearance,Urine Clear (Clear); Bacteria,Urine Few /hpf; Bilirubin,Urine Negative (Negative); Blood,Urine Large (Negative); Color,Urine Light Yellow; Glucose,Urine (UA) Negative (Negative); Ketones,Urine Negative (Negative); Leukocyte Esterase,Urine Negative (Negative); Mucus,Urine Rare /hpf; Nitrite,Urine Negative (Negative); Protein,Urine Trace (Negative); RBC,Urine >182 /hpf (0-5); Specific Gravity,Urine 1.012 (1.001-1.035); Squamous Epithelial Cell,Urine 1 /hpf (0-4); Urobilinogen,Urine <2.0 mg/dL (<2.0); WBC,Urine <1 /hpf (0-5)
--- NOTE | 2024-05-19 14:41 | US ---
EXAMINATION TYPE: Transabdominal DATE OF EXAM: 05/19/2024 2:27 PM COMPARISON: NONE CLINICAL INDICATION: Female, 33 years old with history of vaginal bleeding in ; Spotting thr oughout entire that turned heavy today EXAM PERFORMED: Transvaginal (TV) and Transabdominal (TA) EXAM MEASUREMENTS: GESTATIONAL AGE / DATING Physician Established: (7 weeks/1 days) EDC: 01/04/2025 Dates by LMP: ) EDC: Dates by First Scan: (7 weeks/1 days) EDC: 01/04/2025 Dates by Current Scan for: (7 weeks/0 days) EDC: 01/05/2025 MATERNAL ANATOMY Uterus: 9.0 x 5.3 x 6.0 cm Right Ovary: 3.4 x 1.8 x 2.7 cm Left Ovary: 3.3 x 2.4 x 2.8 Post CDS / Adnexa: WNL Presence of free fluid: No Presence of corpus luteal cyst: No Presence of subchorionic bleed: Right uterine fundus = 2.1 x 1.1 x 0.7 cm GESTATION / SURVEY CRL: 9.4 (7 weeks/0 days) MSD: NA Yolk Sac (normal less than 6mm): 0.2 Heart Rate: 132 bpm Rhythm: Normal IUP: Viable IUP Nuchal Translucency 10-14wks (normal less than 3mm): NA Age Appropriate Anatomy Cord Insertion: NA Limbs: NA Calvarium: NA Date of LMP: Unknown Beta HcG (if available): Not available at this time IMPRESSION: 1. Single viable intrauterine as described above. 2. 2.1 x 1.1 x 0.7 cm subchorionic bleed. 3. No adnexal abnormalities. 4. No free fluid in the cul-de-sac.
[2024-05-19 15:10] LABS: HCG,Quantitative Serum 26764.5 mIU/mL
[2024-05-19 16:09] VITALS: BP 116/74; RESP 18
== END 2024-05-19 16:09 | disposition home or self-care (01) ==
LOC: EC 13:03
CPT/HCPCS: 36415; 76801; 76817; 80053; 81001; 83605; 84702; 85025; 99284

== ENCOUNTER 2024-10-20 11:12 | Outpatient (CLI) | payer BC ==
[2024-10-20 11:56] LABS: Appearance,Urine Clear (Clear); Bilirubin,Urine Negative (Negative); Blood,Urine Negative (Negative); Color,Urine Colorless; Glucose,Urine (UA) Negative (Negative); Ketones,Urine 1+ (Negative); Leukocyte Esterase,Urine Negative (Negative); Nitrite,Urine Negative (Negative); PH, Urine 6.5 (5.0-8.0); Protein,Urine Negative (Negative); Specific Gravity,Urine 1.009 (1.001-1.035); Urobilinogen,Urine <2.0 mg/dL (<2.0)
[2024-10-20] MEDS: LACTATED RINGERS 1,000 ML IV ONE (12:04)
[2024-10-20] MEDS: ONDANSETRON 4 MG/2 ML VIAL IVP STA (12:06)
[2024-10-20 12:20] LABS: Influenza A Not Detected (Not Detectd); Influenza B Not Detected (Not Detectd); RSV Not Detected (Not Detectd)
--- NOTE | 2024-10-20 14:53 | US ---
EXAMINATION TYPE: US OB BPP wo non-stress DATE OF EXAM: 10/20/2024 COMPARISON: NONE CLINICAL INDICATION: Female, 34 years old with history of non reactive NST; TECHNIQUE: Transabdominal (TA). Scoring by the export manager during real-time assessment. FINDINGS: BPP PARAMETERS: PRESENTATION: Breech LIE: Longitudinal?? HEART RATE: 120 bpm RHYTHM: Normal VERO: 14.44 BPP SCORIN. Breathin (1 episode of breathing of 30 second duration in 30 minutes of scanning time) 2. Movement: 2 (at least 3 discrete body movements in 30 minutes) 3. Tone: 2 (1 episode of active flexion/extension of limb) 4. VERO: 2 (VERO index > 5cm) SUPERVISOR [employer] NOTES: IMPRESSION: TOTAL SCORE: [facility], , 10/20/2024 2:51 PM
[2024-10-20 15:10] VITALS: RESP 16
[2024-10-20 15:42] VITALS: BP 105/55; PULSE 105; TEMP 96.1
--- NOTE | 2024-10-25 17:35 | P.MSEPDOC ---
Presenting Problems - Arrival Data Date of Arrival on Unit: 10/20/24 Time of Arrival on Unit: 11:12 Mode of Transport: Ambulatory - Complaint OB-Reason for Admission/Chief Complaint: Acute Nausea/Vomiting, Pain, Other Comment: viral illness Medical History - Information : 3 Para: 1 Number of Living Children: 1 - Gestational Age Gestational Age by JOCELYN (wks/days): 30 Weeks and 1 Days Review of Systems - Review of Systems Constitutional: No problems Breast: No problems ENT: No problems Cardiovascular: No problems Respiratory: No problems Gastrointestinal: No problems Genitourinary: No problems Musculoskeletal: No problems Neurological: No problems Skin: No problems Vital Signs - Temperature Temperature: 96.1 F Temperature Source: Temporal Artery Scan - Pulse Right Sitting Brachial Pulse Rate: 105 Pulse Assessment Method: Automatic Cuff - Respirations Respiratory Rate: 16 Oxygen Delivery Method: Room Air O2 Sat by Pulse Oximetry: 99 - Blood Pressure Right Arm Sitting Blood Pressure: 105/55 Blood Pressure Mean: 71 Blood Pressure Source: Automatic Cuff Medical Screen Scoring - Uterine Contractions Frequency From (mins): 0 - Assessment - Baby A Baseline FHR: 130 Heart Rate - NICHD Category: Category I (Normal) NST: Non-reactive Physician Notification - Physician Notified Physician Notified Date: 10/20/24 Physician Notified Time: 11:30 Physician: Nora Lobo New Order Received: Yes - Notification Comment Comment: iv hydrate, zofran, bpp Maternal Triage Index - Maternal Triage Index Presenting for scheduled procedure w/no complaint: No - Stat/Priority 1 Stat Priority 1: No - Urgent/Priority 2 Urgent Priority 2: No - Prompt/Priority 3 Prompt Priority 3: No - Non-Urgent/Priority 4 Non-Urgent Priority 4: Yes Criteria Met for Priority 4: nausea, viral symptoms Disposition - Disposition OB Disposition: Discharge to home Discharge Date: 10/20/24 Discharge Time: 15:15 I agree with the RN Medical Screening Exam: Yes Case reviewed; plan agreed upon as documented in EMR&OBIX.: Yes Diagnosis: DEHYDRATION
== END 2024-10-20 15:00 | disposition home or self-care (01) ==
LOC: FBPOP 11:12
PROVIDERS: ATTEND Obstetrics & Gynecology Obstetrics
DX: O32.1XX1 Maternal care for breech presentation, fetus 1 (principal); Z3A.01 Less than 8 weeks gestation of pregnancy
CPT/HCPCS: 59025; 99214; 96361; 96374; 81003; 87636; 76819; J2405; 96360; 96367; 96375

== ENCOUNTER 2024-12-04 14:04 | Outpatient (CLI) | payer BC ==
[2024-12-04 15:26] VITALS: BP 132/62; PULSE 103; RESP 16; TEMP 97.7
--- NOTE | 2025-01-19 20:48 | P.MSEPDOC ---
Presenting Problems - Arrival Data Date of Arrival on Unit: 12/04/24 Time of Arrival on Unit: 14:04 Mode of Transport: Ambulatory - Complaint OB-Reason for Admission/Chief Complaint: Observation/Evaluation Medical History - Information : 3 Para: 1 Term: 1 Abortions: Spontaneous or Elective: 1 Number of Living Children: 1 - Gestational Age Gestational Age by JOCELYN (wks/days): 35 Weeks and 4 Days Review of Systems - Review of Systems Constitutional: No problems Breast: No problems ENT: No problems Cardiovascular: No problems Respiratory: No problems Gastrointestinal: No problems Genitourinary: No problems Musculoskeletal: No problems Neurological: No problems Skin: No problems Vital Signs - Temperature Temperature: 97.7 F Temperature Source: Oral - Pulse Right Sitting Brachial Pulse Rate: 103 Pulse Assessment Method: Automatic Cuff - Respirations Respiratory Rate: 16 Oxygen Delivery Method: Room Air O2 Sat by Pulse Oximetry: 97 - Blood Pressure Right Arm Sitting Blood Pressure: 132/62 Blood Pressure Mean: 85 Blood Pressure Source: Automatic Cuff Medical Screen Scoring - Assessment - Baby A Baseline FHR: 120 Heart Rate - NICHD Category: Category I (Normal) Physician Notification - Physician Notified Physician Notified Date: 12/04/24 Physician Notified Time: 15:15 Physician: Lily Mcclain New Order Received: Yes - Notification Comment Comment: Spk c\Dr. Mcclain, advsd pt arrives to triage c/o blurred vision and an elevated BP at home. Reviewed VS in triage, physical asst and Cat 1 FHT, reactive NST. Order rec'd to have pt take BP at home and bring readings to next appt. Maternal Triage Index - Stat/Priority 1 Stat Priority 1: No - Urgent/Priority 2 Urgent Priority 2: No - Prompt/Priority 3 Prompt Priority 3: Yes Criteria Met for Priority 3: pt reported blurred vision and elevated BP at home Disposition - Disposition OB Disposition: Discharge to home, Written follow up instructions reviewed Discharge Date: 12/04/24 Discharge Time: 15:30 I agree with the RN Medical Screening Exam: Yes Physician's MSE Comment: I have neither seen nor examined the patient Case reviewed; plan agreed upon as documented in EMR&OBIX.: Yes Diagnosis: GESTATIONAL HTN W/O SIGNIFICANT PROTEINURIA, THIRD TRIMESTER
== END 2024-12-04 15:55 | disposition home or self-care (01) ==
LOC: FBPOP 14:04
PROVIDERS: ATTEND Obstetrics & Gynecology
DX: O13.3 Gestational [pregnancy-induced] hypertension without significant proteinuria, third trimester (principal); Z3A.35 35 weeks gestation of pregnancy
CPT/HCPCS: 59025; 99213

== ENCOUNTER 2024-12-12 21:30 | Outpatient (CLI) | payer BC ==
[2024-12-12 22:22] LABS: Basophils % (A) 0 %; Eosinophils # (A) 0.3 k/uL (0-0.7); Eosinophils % (A) 3 %; HCT 31.8 % (34.0-46.0); HGB 10.6 gm/dL (11.4-16.0); Hypochromasia Slight; Lymphocytes # (A) 1.4 k/uL (1.0-4.8); Lymphocytes % (A) 13 %; MCH 27.6 pg (25.0-35.0); MCHC 33.3 g/dL (31.0-37.0); MCV 82.7 fL (80.0-100.0); Mean Platelet Volume 8.3; Monocytes # (A) 0.6 k/uL (0-1.0); Monocytes % (A) 6 %; Neutrophils # (A) 8.1 k/uL (1.3-7.7); Neutrophils % (A) 76 %; Platelet Count 246 k/uL (150-450); RBC 3.85 m/uL (3.80-5.40); RDW 13.9 % (11.5-15.5); WBC 10.7 k/uL (3.8-10.6)
[2024-12-12 22:31] LABS: ALT 13 U/L (4-34); AST 20 U/L (14-36); African American GFR (CKD) >90 (>60 ml/min/1.73 sqM); Blood Urea Nitrogen 5 mg/dL (7-17); LDH 216 U/L (120-246); Magnesium 1.6 mg/dL (1.6-2.3); Non-African American GFR(CKD) >90 (>60 ml/min/1.73 sqM)
[2024-12-12 22:32] LABS: INR 0.9 (<1.2); Partial Thromboplastin Time 23.5 sec (22.0-30.0); Prothrombin Time 10.3 sec (10.0-12.5)
[2024-12-12] MEDS: LACTATED RINGERS 1,000 ML IV ONE (22:39)
[2024-12-12 23:23] LABS: Appearance,Urine Clear (Clear); Bilirubin,Urine Negative (Negative); Blood,Urine Negative (Negative); Color,Urine Light Yellow; Glucose,Urine (UA) Negative (Negative); Ketones,Urine 2+ (Negative); Leukocyte Esterase,Urine Negative (Negative); Nitrite,Urine Negative (Negative); Protein,Urine Negative (Negative); Specific Gravity,Urine 1.014 (1.001-1.035); Urobilinogen,Urine <2.0 mg/dL (<2.0)
[2024-12-12 23:34] LABS: Creatinine,Urine Random 91.3 mg/dL; Protein/Creatinine Ratio,Urine 0.142
[2024-12-13 00:42] VITALS: BP 138/86; PULSE 106; RESP 20; TEMP 96.5
--- NOTE | 2025-01-05 11:39 | P.MSEPDOC ---
Presenting Problems - Arrival Data Date of Arrival on Unit: 12/12/24 Time of Arrival on Unit: 21:30 Mode of Transport: Ambulatory - Complaint OB-Reason for Admission/Chief Complaint: Headache, Visual Disturbances, PIH, Elevated Blood Pressure Comment: Pt complaint of headache, blurred vision occassional, swelling in feet, and elevated blood pressures at home. Medical History - Information : 3 Para: 1 Term: 1 : 0 Abortions: Spontaneous or Elective: 1 Number of Living Children: 1 - Gestational Age Gestational Age by JOCELYN (wks/days): 36 Weeks and 5 Days - History Complications: Prior Review of Systems - Review of Systems Constitutional: No problems Breast: No problems ENT: No problems Cardiovascular: No problems Respiratory: No problems Gastrointestinal: No problems Genitourinary: No problems Musculoskeletal: No problems Neurological: No problems Skin: No problems Vital Signs - Temperature Temperature: 96.5 F Temperature Source: Temporal Artery Scan - Pulse Pulse Oximetery Pulse Rate: 106 Pulse Assessment Method: Pulse Oximetry - Respirations Respiratory Rate: 20 Oxygen Delivery Method: Room Air O2 Sat by Pulse Oximetry: 97 - Blood Pressure Right Arm Blood Pressure: 138/86 Blood Pressure Mean: 103 Blood Pressure Source: Automatic Cuff Medical Screen Scoring - Uterine Contractions Resting: Soft to palpation - Assessment - Baby A Baseline FHR: 125 Heart Rate - NICHD Category: Category I (Normal) NST: Reactive Physician Notification - Physician Notified Physician Notified Date: 12/12/24 Physician Notified Time: 22:20 Physician: Denver Serrato Order Received: Yes (IV Fluid bolus 1L, Lab work WNL okay to discharge home) - Notification Comment Comment: Reported on FHR moderate variability and accels with intermittent strip due to patient size, position, and movement, reviewed blood pressure readings, c/o headache, blurred vision at times, non pitting edema in bilateral ankles, PIH labs sent waiting on results Maternal Triage Index - Maternal Triage Index Presenting for scheduled procedure w/no complaint: No - Stat/Priority 1 Stat Priority 1: No - Urgent/Priority 2 Urgent Priority 2: No - Prompt/Priority 3 Prompt Priority 3: Yes Criteria Met for Priority 3: 36 4/7 weeks with elevated blood pressure 142/84. PIH workup done Disposition - Disposition OB Disposition: Discharge to home Discharge Date: 12/12/24 Discharge Time: 23:50 I agree with the RN Medical Screening Exam: Yes Physician's MSE Comment: I have neither seen nor examined the patient. Case reviewed; plan agreed upon as documented in EMR&OBIX.: Yes Diagnosis: RELATED CONDITIONS, UNSPECIFIED, THIRD TRIMESTER
== END 2024-12-12 23:50 | disposition home or self-care (01) ==
LOC: FBPOP 21:30
PROVIDERS: ATTEND Obstetrics & Gynecology
DX: O29.43 Spinal and epidural anesthesia induced headache during pregnancy, third trimester (principal); O13.3 Gestational [pregnancy-induced] hypertension without significant proteinuria, third trimester; O26.893 Other specified pregnancy related conditions, third trimester; R51.9 Headache, unspecified; R03.0 Elevated blood-pressure reading, without diagnosis of hypertension; H53.9 Unspecified visual disturbance; Z3A.36 36 weeks gestation of pregnancy
CPT/HCPCS: 36415; 59025; 81003; 82565; 82570; 83615; 83735; 84156; 84450; 84460; 84520; 84550; 85025; 85384; 85610; 85730; 96360; 99215

== ENCOUNTER 2024-12-28 08:04 | Inpatient (IN) | payer BC ==
[2024-12-28] MEDS: LACTATED RINGERS 1,000 ML IV SCH ×2 (08:25→11:15)
[2024-12-28] MEDS ORDERED: TRANEXAMIC 1,000 MG/100ML-NACL 1,000 MG in EMPTY BAG 1 BAG IV PRN (08:26)
[2024-12-28] MEDS ORDERED: miSOPROStoL 200 MCG TAB PO PRN (08:26)
[2024-12-28] MEDS ORDERED: CARBOPROST TROMETHAMINE 250 MCG/ML 1 ML AMP IM PRN (08:26)
[2024-12-28] MEDS ORDERED: METHYLERGONOVINE 0.2 MG/ML 1 ML AMP IM PRN (08:26)
[2024-12-28] MEDS ORDERED: OXYTOCIN 10 UNIT/ML 1 ML VIAL IM PRN (08:26)
[2024-12-28] MEDS ORDERED: OXYTOCIN 30 UNITS/500 ML NS 30 UNIT in SALINE 1 500ML.BAG IV SCH (08:30)
[2024-12-28 08:38] LABS: Basophils # (A) 0.04 10*3/uL (0.00-0.10); Basophils % (A) 0.4 %; Eosinophils # (A) 0.26 10*3/uL (0.04-0.35); Eosinophils % (A) 2.3 %; HCT 33.8 % (37.2-46.3); HGB 10.8 g/dL (12.0-15.0); Lymphocytes # (A) 1.46 10*3/uL (0.90-5.00); Lymphocytes % (A) 12.8 %; MCH 26.5 pg (27.0-32.0); Mean Platelet Volume 10.9 fL (9.5-12.2); Monocytes # (A) 0.82 10*3/uL (0.20-1.00); Monocytes % (A) 7.2 %; Neutrophils # (A) 8.29 10*3/uL (1.80-7.70); Neutrophils % (A) 72.9 %; Platelet Count 249 10*3/uL (140-440); RBC 4.07 10*6/uL (4.10-5.20); RDW 13.9 % (11.5-14.5); WBC 11.37 10*3/uL (4.50-10.00)
[2024-12-28] MEDS: ceFAZolin 3 GM in SODIUM CHLORIDE 0.9% 100 ML IVPB ONE (09:54)
[2024-12-28] MEDS: CITRIC ACID-SODIUM CITRATE 15 ML CUP PO ONE (09:54)
[2024-12-28] MEDS ORDERED: fentaNYL (PF) 50 MCG/ML 2 ML AMP ONE (10:01)
[2024-12-28] MEDS ORDERED: PHENYLEPHRINE 10 MG/ML VIAL ONE (10:01)
[2024-12-28] MEDS ORDERED: MORPHINE SULFATE (PF) 0.3 MG/0.3 ML SYR ONE (10:01)
[2024-12-28] MEDS ORDERED: KETOROLAC 30 MG/ML 1 ML VIAL ONE (10:01)
[2024-12-28] MEDS ORDERED: ONDANSETRON 4 MG/2 ML VIAL ONE (10:01)
[2024-12-28] MEDS ORDERED: NALBUPHINE (ANES) 10 MG/ML - 1 ML AMP ONE (10:01)
[2024-12-28] MEDS ORDERED: ZOLPIDEM 5 MG TAB PO PRN (11:05)
[2024-12-28] MEDS ORDERED: diphenhydrAMINE 50 MG/ML 1 ML VIAL IVP PRN ×2 (11:05)
[2024-12-28] MEDS ORDERED: METOCLOPRAMIDE 5 MG/ML 2 ML VIAL IVP PRN (11:05)
[2024-12-28] MEDS ORDERED: diphenhydrAMINE 25 MG CAP PO PRN (11:05)
[2024-12-28] MEDS ORDERED: diphenhydrAMINE 50 MG CAP PO PRN (11:05)
[2024-12-28] MEDS ORDERED: ONDANSETRON 4 MG/2 ML VIAL IVP PRN (11:05)
[2024-12-28] MEDS ORDERED: NALOXONE 0.4 MG/ML 1 ML VIAL IV PRN (11:05)
--- NOTE | 2024-12-28 11:11 | P.HPOB ---
History of Present Illness H&P Date: 12/28/24 Chief Complaint: Scheduled repeat section Ms. Rivera is a 34 year old at 39 weeks and 0 days gestation with EDC of 01/04/25 by LMP consistent with 9 week US who presents for scheduled repeat section. The has been essentially uncomplicated. The fetus is estimated to be large for gestational age, with weight in the 99%ile at 36 week growth US. work-up: blood type O positive, antibody screen negative, rubella immune, VDRL non-reactive, HBsAg negative, HIV negative, HCV Ab non-reactive, gonorrhea negative, chlamydia negative, 1 hour GTT wnl, GBS negative. Obstetric history: 1 FTCS after failure to progress Past Medical History Past Medical History: Asthma History of Any Multi-Drug Resistant Organisms: None Reported Past Surgical History: Adenoidectomy, Section, Tonsillectomy Past Anesthesia/Blood Transfusion Reactions: Unable to Obtain Past Psychological History: No Psychological Hx Reported Smoking Status: Never smoker Past Alcohol Use History: None Reported Past Drug Use History: None Reported - Past Family History Mother Family Medical History: Hypertension Medications and Allergies Home Medications Medication Instructions Recorded Confirmed Type Aspirin 81 mg PO DAILY 08/17/21 12/28/24 History Famotidine [Pepcid] 20 mg PO DAILY 08/17/21 12/28/24 History Pnv No.95/Ferrous Fum/Folic AC 1 tablet PO DAILY 08/17/21 12/28/24 History [ Multivitamin Tablet] Sertraline [Zoloft] 100 mg PO DAILY 08/17/21 12/28/24 History Allergies Allergy/AdvReac Type Severity Reaction Status Date / Time No Known Allergies Allergy Verified 12/28/24 08:22 Exam Vital Signs Temp Pulse Resp BP Pulse Ox 12/28/24 08:21 97.0 F L 114 H 17 125/78 97 Intake and Output 12/27/24 12/28/24 12/28/24 22:59 06:59 14:59 Other: Weight 148.778 kg Focused physical exam is performed. This is a healthy-appearing in no apparent distress. Breathing is non-labored. Abdomen is gravid and non-tender. Extremities non-tender and non-edematous. heart tones are reactive and reassuring on NST. Results Result Diagrams: 12/28/24 08:28 Abnormal Lab Results - Last 24 Hours (Table) 12/28/24 Range/Units 08:28 WBC 11.37 H (4.50-10.00) 10*3/uL RBC 4.07 L (4.10-5.20) 10*6/uL Hgb 10.8 L (12.0-15.0) g/dL Hct 33.8 L (37.2-46.3) % MCH 26.5 L (27.0-32.0) pg Immature Gran # 0.50 H (0.00-0.04) 10*3/uL Neutrophils # 8.29 H (1.80-7.70) 10*3/uL Assessment and Plan Assessment: 34 year old at 39 weeks presenting for scheduled repeat section Plan: Admit, NPO, initiate protocol, 3g Ancef.
--- NOTE | 2024-12-28 11:17 | P.OP ---
Date of Procedure: 12/28/24 Preoperative Diagnosis: 1. Term IUP at 39 weeks 2. History of Prior Section 3. No Desire for TOLAC Postoperative Diagnosis: Same Procedure(s) Performed: Repeat Lower Transverse Section Implants: None Anesthesia: spinal Surgeon: Lily Mcclain Simulation Tech #1: Denver Serrato Estimated Blood Loss (ml): 620 IV fluids (ml): 1,200 Urine output (ml): 50 Pathology: none sent Condition: stable Disposition: floor Indications for Procedure: Ms. Rivera is a 34 year old at 39 weeks presenting for scheduled repeat section. The risks, benefits, and alternatives to section were discussed with the patient including risk of bleeding, infection, damage to surrounding structures including bladder/bowels/ureters, and post- operative VTE. The patient understands these risks and desires to proceed with section. Operative Findings: Moderate adhesive disease. Viable male infant in cephalic presentation, nuchal cord x1. Colorless amniotic fluid. Apgars 9/9. Weight 9 pounds and 15 ounces (4500 grams). Normal uterus, bilateral fallopian tubes, and ovaries. Description of Procedure: The patient was taken back to the operating room where spinal anesthesia was found to be adequate. Three grams of Ancef were given for infection prophylaxis. She was prepared and draped in the dorsal supine position with a leftward tilt. A Pfannenstiel skin incision was made with the scalpel. The incision was carried down to the fascia with a bovie. The fascia was incised and extended laterally with Maher scissors. The superior aspect of the fascia was grasped with the Grady clamps. The underlying rectus muscle was dissected off sharply with Maher scissors. In a similar fashion, the inferior aspect of the fascia was elevated with Grady clamps and the rectus muscle and pyramidalis were dissected off. Excellent hemostasis was achieved with the bovie. The rectus muscle was in the midline down to the level of the pubic symphysis. Pre- peritoneal fatty tissue was bluntly dissected to expose the peritoneum. The peritoneum was found to be free of adherent bowel and entered sharply with Maher scissors. The peritoneal incision was extended superiorly and inferiorly to the bladder reflection with good visualization of the bladder. The bladder blade was inserted and vesicouterine peritoneum was identified. Intraabdominal survey revealed scant, clear peritoneal fluid and the thinned-out lower uterine segment. TThe bladder blade was positioned to keep the bladder out of the opera tive field. The lower uterine segment was incised with a scalpel. The amniotic sac was ruptured with an Allis clamp and clear fluid was noted. The uterine incision was extended bluntly with lateral and upward traction. The fetus was in cephalic presentation. The head was elevated out of the pelvis with special attention paid to avoid using the uterine incision as a fulcrum. Gentle fundal pressure was applied once the head was brought into the incision. One nuchal cord was reduced. The infant was delivered with no difficulty and was noted to be crying spontaneously. The mouth and nose were suctioned with a bulb. The cord was clamped and cut. The infant was handed off to the technical recruiter. IV oxytocin was initiated to facilitate uterine contractions. The umibical cord was avulsed during the third stage and the placenta was delivered manually and piece lamas with manual massage of uterine fundus. A thorough sweep of the utuers was performed to ensure no retained products. The uterus was then exteriorized and the inside of the uterus was gently wiped with a lap sponge to assure complete removal of placental membranes. The uterine incision was closed with 0-Vicryl suture in a running locked fashion. A second imbricating layer was placed with 0-Vicryl. The ovaries and tubes were found to be normal. The uterus, tubes, and ovaries were then gently returned to the abdominal cavity. Surgicel powder was used along the hysterotomy for bleeding prophylaxis. The abdomen was copiously suction irrigated. The uterine incision was reinspected and excellent hemostasis was noted. The fascial layer was closed with a 0-Vicryl suture. The subcutaneous tissue was reapproximated with 2-0 Plain Gut. The skin was closed with 4-0 Monocryl in a subcuticular fashion.The patient tolerated the procedure well. All the counts were correct times two. The patient was taken to the recovery room in a stable condition. A physician surgical assistant certified was utilized for the entire procedure due to the need for tissue retraction, dissection of vital structures, prevention and management of blood loss, and reduction in overall operative and anesthesia time as is the standard of care.
[2024-12-28] MEDS: ACETAMINOPHEN IV (For NPO) 1,000 MG in EMPTY BAG 1 BAG IVPB ONE (12:00)
[2024-12-28] MEDS ORDERED: ACETAMINOPHEN TAB 500 MG TAB PO SCH (12:00)
[2024-12-28] MEDS: KETOROLAC 15 MG/ML 1 ML VIAL IVP SCH (16:03)
[2024-12-28] MEDS: SENNOSIDES-DOCUSATE SODIUM 1 EACH TAB PO SCH (19:58)
[2024-12-28] MEDS: ACETAMINOPHEN TAB 500 MG TAB PO SCH (19:59)
[2024-12-29 05:10] LABS: Basophils # (A) 0.05 10*3/uL (0.00-0.10); Basophils % (A) 0.4 %; Eosinophils # (A) 0.32 10*3/uL (0.04-0.35); Eosinophils % (A) 2.7 %; HCT 31.4 % (37.2-46.3); HGB 9.8 g/dL (12.0-15.0); Lymphocytes # (A) 0.91 10*3/uL (0.90-5.00); Lymphocytes % (A) 7.7 %; MCH 26.4 pg (27.0-32.0); MCHC 31.2 g/dL (32.0-37.0); MCV 84.6 fL (80.0-97.0); Mean Platelet Volume 9.7 fL (9.5-12.2); Monocytes # (A) 0.96 10*3/uL (0.20-1.00); Monocytes % (A) 8.1 %; Neutrophils # (A) 9.41 10*3/uL (1.80-7.70); Neutrophils % (A) 79.3 %; Platelet Count 174 10*3/uL (140-440); RBC 3.71 10*6/uL (4.10-5.20); RDW 14.1 % (11.5-14.5); WBC 11.86 10*3/uL (4.50-10.00)
[2024-12-29] MEDS: IBUPROFEN 800 MG TAB PO SCH (08:32)
--- NOTE | 2024-12-29 09:54 | P.PNOBGPC ---
Subjective - Subjective Principal diagnosis: s/p section Interval history: The patient is doing well this morning and had no acute events overnight. She has no complaints this morning. She reports minimal lochia, passing flatus, voiding without difficulty, ambulating, and eating/drinking without nausea or vomiting. She is breast feeding her infant without difficulty. She denies chest pain, shortness of breathing, fevers, or chills overnight. She denies pain or swelling in the legs. Patient reports: Reports appetite normal, Reports voiding normally, Reports pain well controlled, Reports ambulating normally : doing well, nursing well Objective - Vital Signs Latest vital signs: Vital Signs Temp Pulse Resp BP BP Pulse Ox 12/29/24 08:00 98.2 F 95 18 108/66 95 12/29/24 04:00 96.6 F L 96 18 103/72 95 12/28/24 23:41 97.8 F 90 18 95/64 97 12/28/24 20:00 96.0 F L 83 16 112/79 97 12/28/24 16:00 98.3 F 82 16 113/59 97 12/28/24 13:00 97.7 F 89 15 122/61 97 12/28/24 12:45 93 14 123/69 12/28/24 12:30 86 15 119/72 12/28/24 12:15 97 15 123/81 12/28/24 12:00 91 14 118/57 12/28/24 11:45 89 15 110/58 12/28/24 11:30 85 15 112/59 12/28/24 11:15 89 14 112/61 12/28/24 11:00 97.0 F L 87 15 116/70 97 Intake and Output 12/28/24 12/29/24 12/29/24 22:59 06:59 14:59 Output Total 150 500 Balance -150 -500 Output: Urine 150 500 Other: Voiding Method Indwelling Catheter # Voids 1 - Labs Labs: Abnormal Lab Results - Last 24 Hours (Table) 12/29/24 Range/Units 04:59 WBC 11.86 H (4.50-10.00) 10*3/uL RBC 3.71 L (4.10-5.20) 10*6/uL Hgb 9.8 L (12.0-15.0) g/dL Hct 31.4 L (37.2-46.3) % MCH 26.4 L (27.0-32.0) pg MCHC 31.2 L (32.0-37.0) g/dL Immature Gran # 0.21 H (0.00-0.04) 10*3/uL Neutrophils # 9.41 H (1.80-7.70) 10*3/uL Assessment and Plan Assessment: 34 year old now POD#1 s/p repeat section Plan: 1. Post-op. Patient meeting all post-op milestones appropriately. 2. Viable male , doing well at bedside. Nursing well. Will need circumcision. Dispo: Anticipate discharge home tomorrow.
--- NOTE | 2024-12-29 13:45 | P.PN ---
Progress Note - Text Progress Note Date: 12/29/24 (6771) Anesthesia Postop day 1 Subjective: Status Post section with Duramorph. Patient seen and examined. Doing well without complaint. VAS 0. No nausea or vomiting. Mild pruritus tolerable.. Denies fever. Gross lower extremity strength intact. Without apparent anesthetic complications. Objective: Vital signs reviewed Heart: Regular Rate Lungs: Good chest excursion Abdomen: Appears nondistended Assessment: Status post section with Duramorph postop day 1 Plan: 1. Continue current care with your medical management. Anticipated end to the duration of the Duramorph around surgery time today. You may see increased pain needs around this time. 2. This note was dictated using [employer] software. Please be advised there is a potential for misspellings or errors in delivery manager.
[2024-12-30 06:41] LABS: Basophils # (A) 0.07 10*3/uL (0.00-0.10); Basophils % (A) 0.5 %; Eosinophils # (A) 0.57 10*3/uL (0.04-0.35); Eosinophils % (A) 4.4 %; HCT 31.6 % (37.2-46.3); HGB 9.8 g/dL (12.0-15.0); Lymphocytes # (A) 1.33 10*3/uL (0.90-5.00); Lymphocytes % (A) 10.2 %; MCH 26.5 pg (27.0-32.0); MCV 85.4 fL (80.0-97.0); Monocytes # (A) 1.08 10*3/uL (0.20-1.00); Monocytes % (A) 8.3 %; Neutrophils % (A) 73.4 %; Platelet Count 193 10*3/uL (140-440); RDW 14.3 % (11.5-14.5); WBC 13.07 10*3/uL (4.50-10.00)
[2024-12-30 07:38] VITALS: BP 123/83; PULSE 81; RESP 16; TEMP 98.3
--- NOTE | 2024-12-30 08:55 | P.DS ---
Providers Date of admission: 12/28/24 08:04 Expected date of discharge: 12/30/24 Attending physician: Lily Mcclain MD [facility] care physician[facility] Course: Ms. Rivera is a 34 year old now POD#2 s/p repeat lower transverse section. The patient is doing well this morning and had no acute events overnight. She has no complaints this morning. She reports minimal lochia, passing flatus, voiding without difficulty, ambulating, and eating/drinking without nausea or vomiting. doing well at bedside, s/p circumcision. She denies chest pain, shortness of breathing, fevers, or chills overnight. She denies pain or swelling in the legs. Postoperative restrictions are reviewed with the patient including pelvic rest for 6 weeks, no lifting heavier than 15 pounds for 6 weeks. The patient is encouraged to call the office if she experiences any heavy bleeding, foul-smelling discharge, breast complaints, or any if she has any other concerns. She will follow up in the office with n 2 weeks for postoperative exam. All questions are answered. Patient Condition at Discharge: Good Plan - Discharge Summary New Discharge Prescriptions: No Action Sertraline [Zoloft] 100 mg PO DAILY Pnv No.95/Ferrous Fum/Folic AC [ Multivitamin Tablet] 1 tablet PO DAILY Famotidine [Pepcid] 20 mg PO DAILY Aspirin 81 mg PO DAILY Discharge Medication List Aspirin 81 mg PO DAILY 08/17/21 [History] Famotidine [Pepcid] 20 mg PO DAILY 08/17/21 [History] Pnv No.95/Ferrous Fum/Folic AC [ Multivitamin Tablet] 1 tablet PO DAILY 08/17/21 [History] Sertraline [Zoloft] 100 mg PO DAILY 08/17/21 [History] Follow up Appointment(s)/Referral(s): Lily Mcclain MD [STAFF PHYSICIAN] - 2 Weeks (01/10/2025 @1:30pm 02/07/2025 @1:30pm) Activity/Diet/Wound Care/Special Instructions: Instructions 1. Do not begin any exercise program for 3 weeks. 2. Do not resume sexual relations for 6 weeks or longer if uncomfortable. 3. You may take tub baths or showers at any time. 4. You may use tampons if desired after 6 weeks. 5. Keep any areas repaired with stitches clean and dry. 6. If you are not nursing, wear a good fitting, supportive bra during the day and limit fluid intake for at least 1 week to prevent breast engorgement. 7. Call the office, , within the next week to make appointment for your 6 week checkup if it has not already been made. 8. Report any of the following occurrences to the doctor promptly: a. Heavy, excessive bleeding b. Chills, fever c. Burning or frequency of urination d. Pain or redness and breasts if nursing e. Increasing pain or swelling of vulva (stitches). In addition to the above instructions, the following additional should be followed: 1. No heavy lifting or straining (exercising) until after 6 week checkup. 2. Keep abdominal incision clean and dry: You may wear a dressing if more comfortable. 3. Make office appointment for 2 weeks after delivery date. Discharge Disposition: HOME SELF-CARE
[2024-12-30] MEDS: SIMETHICONE 80 MG CHEWABLE PO PRN (10:15)
== END 2024-12-30 11:40 | disposition home or self-care (01) | DRG 788 ==
LOC: 4FBP 08:04
PROVIDERS: ADMIT Obstetrics & Gynecology; ATTEND Obstetrics & Gynecology
PROC: 10D00Z1 Extraction of Products of Conception, Low, Open Approach (ICD-10-PCS; principal; 2024-12-28 10:00)
DX: O34.211 Maternal care for low transverse scar from previous cesarean delivery (principal); J45.909 Unspecified asthma, uncomplicated; O36.63X0 Maternal care for excessive fetal growth, third trimester, not applicable or unspecified; O99.52 Diseases of the respiratory system complicating childbirth; O69.81X0 Labor and delivery complicated by cord around neck, without compression, not applicable or unspecified; O99.73 Diseases of the skin and subcutaneous tissue complicating the puerperium; Z79.82 Long term (current) use of aspirin; Z79.899 Other long term (current) drug therapy; L29.9 Pruritus, unspecified; Z3A.39 39 weeks gestation of pregnancy; Z37.0 Single live birth
CPT/HCPCS: 85025; 86850; 86900; 86901